=== PATIENT | female | born 1990 | race Caucasian/White ===

== ENCOUNTER 2019-11-15 12:55 | Emergency (ER) | payer MEDICAID ==
[~2019-11-15] VITALS: Ht 167.6 cm; Wt 72.7 kg
[2019-11-15] MEDS ORDERED: normal saline 1000ML IV soln IV ONE (13:15)
[2019-11-15] MEDS ORDERED: LORazepam 2 mg/ml vial IV ONE ×4 (13:20→15:25)
[2019-11-15 13:42] LABS: CLARITY,URINE CLEAR (Clear); COLOR,URINE STRAW (Yellow); GLUCOSE, URINE NEGATIVE (Neg); KETONES,URINE >=80 mg/dl (Neg); LEUKOCYTE ESTERASE ,URINE NEGATIVE (Neg); NITRITES, URINE NEGATIVE (Neg); OCCULT BLOOD,URINE MODERATE (Neg); PROTEIN,URINE 30 mg/dl (Neg); UROBILINOGEN,URINE 0.2 E.U/dL (0.2-1.0)
[2019-11-15 13:43] LABS: UA COLLECTION TYPE CLN CATCH MIDSTREAM; URINE HCG NEGATIVE (NEG)
[2019-11-15 13:47] LABS: BASOPHILS # (AUTO) 0.1 X10'3 (0-0.2); BASOPHILS % (AUTO) 1.4 % (0-1); EOSINOPHILS % (AUTO) 0 % (0-6); HEMATOCRIT 40.8 % (35.0-45.0); HEMOGLOBIN 13.4 g/dl (12.0-16.0); LYMPHOCYTES # (AUTO) 1.1 X10'3 (1.1-4.8); LYMPHOCYTES % (AUTO) 16.8 % (21-51); MEAN CORPUSCULAR HEMOGLOBIN 30.3 PG (27.0-31.0); MEAN CORPUSCULAR HGB CONC 32.8 g/dL (33.0-36.5); MEAN CORPUSCULAR VOLUME 92.6 FL (78-98); MEAN PLATELET VOLUME 8.8 FL (7.4-10.4); MONOCYTES # (AUTO) 0.6 X10'3 (0-0.9); MONOCYTES % (AUTO) 8.9 % (2-12); NEUTROPHILS # (AUTO) 4.6 X10'3 (1.8-7.7); NEUTROPHILS % (AUTO) 72.9 % (42-75); PLATELET COUNT 325 X10'3 (140-440); RED BLOOD COUNT 4.41 X10'6 (4.20-5.60); RED CELL DISTRIBUTION WIDTH 14.5 % (11.5-14.5); WHITE BLOOD COUNT 6.3 X10'3 (4.5-11.0)
[2019-11-15 13:47] LABS: URINE AMPHETAMINE SCREEN NEGATIVE (Neg); URINE BARBITUATE SCREEN NEGATIVE (Neg); URINE BENZODIAZEPINES SCREEN NEGATIVE (Neg); URINE CANNABINOID SCREEN NEGATIVE (Neg); URINE COCAINE SCREEN NEGATIVE (Neg); URINE METHADONE SCREEN NEGATIVE (Neg); URINE OPIATE SCREEN NEGATIVE (Neg); URINE PHENCYCLIDINE SCREEN NEGATIVE (Neg)
[2019-11-15 13:52] LABS: BACTERIA,URINE NONE SEEN /HPF (Neg); MUCUS STRANDS NONE SEEN /LPF (Neg); RBC,URINE NONE SEEN /HPF (0-2); SQUAMOUS EPITHELIAL CELL,UR MODERATE /LPF (FEW); WBC,URINE 0-4 /HPF (0-4)
[2019-11-15 13:54] LABS: ALANINE AMINOTRANSFERASE 77 U/L (12-78); ALBUMIN 4.6 G/DL (3.4-5.0); ALKALINE PHOSPHATASE 91 IU/L (46-116); ANION GAP 24 (8-16); ASPARTATE AMINO TRANSFERASE 153 U/L (10-37); BILIRUBIN,TOTAL 0.6 MG/DL (0.1-1.0); BLOOD UREA NITROGEN 10 MG/DL (7-18); BUN/CREATININE RATIO 13.2 (6.6-38.0); CALCIUM 8.7 MG/DL (8.5-10.1); CHLORIDE 97 MMOL/L (99-107); CREATININE 0.76 MG/DL (0.40-0.90); ETHANOL 0.207 GM/DL (0.0-0.010); GLUCOSE 59 MG/DL (70-104); LIPASE 57 U/L (73-393); POTASSIUM 4.3 MMOL/L (3.5-5.1); SODIUM 133 MMOL/L (135-145); TOTAL PROTEIN 9.2 G/DL (6.4-8.2); eGFR 89 ML/MIN
[2019-11-15 13:58] LABS: TOTAL CARBON DIOXIDE 12.5 MMOL/L (24-32)
--- NOTE | 2019-11-15 14:44 | NUR ---
Patient resting in bed comfortable but still has tremors. Patient has liter NS #2 infusing.
[2019-11-15] MEDS ORDERED: folic acid 1mg/0.2ml inj IV ONE (15:10)
[2019-11-15] MEDS ORDERED: thiamine 100mg/ml 2ml inj. IV ONE (15:10)
[2019-11-15] MEDS ORDERED: GABA300C PO (15:27)
[2019-11-15] MEDS ORDERED: LORA-269 PO (15:27)
[2019-11-15 17:00] VITALS: BP 108/75
== END 2019-11-15 17:01 | disposition home or self-care (01) ==
LOC: ER 12:57
DX: F10.239 Alcohol dependence with withdrawal, unspecified (principal); R11.10 Vomiting, unspecified; R42 Dizziness and giddiness; Z79.899 Other long term (current) drug therapy; Y90.0 Blood alcohol level of less than 20 mg/100 ml
CPT/HCPCS: 36415; 80053; 80305; 80320; 81001; 81025; 83690; 85025; 96361; 96374; 96375; 96376; 99285; J2060; J3411; J3490; J7030

== ENCOUNTER 2020-01-17 01:28 | Inpatient (IN) | payer MEDICAID ==
[2020-01-17] VITALS (16 sets, daily range): BP systolic 100–133; BP diastolic 60–82
[~2020-01-17] VITALS: Ht 167.6 cm; Wt 68.2 kg
[~2020-01-17 01:28] MED LIST: GABA300C PO; LORA-269 PO
--- NOTE | 2020-01-17 01:45 | NUR ---
PT MOVED INSIDE DUE TO SYMPTOMS INCLUDING HR OF 140-160
--- NOTE | 2020-01-17 01:50 | NUR ---
MD MELGAR AWARE OF PT CONDITION INCLUDING HEARTRATE. DISCUSSED NEED FOR FLUIDS. BLOOD DRAWN AND IV STARTED. LA AND BLOOD CULTURES COLLECTED. AWARE OF PT RECENT EXPOSURE TO COVID.
[2020-01-17] MEDS ORDERED: morphine 4 MG/ML inj SYRINge IV ONE (03:00)
[2020-01-17] MEDS ORDERED: ondansetron/PF 4mg/2ml inj IV ONE ×2 (03:00→14:20)
[2020-01-17] MEDS ORDERED: normal saline 1000ML IV soln IVB ONE (03:00)
[2020-01-17] MEDS ORDERED: pantoprazole 40 MG vial IV ONE (03:00)
[2020-01-17 03:16] LABS: BASOPHILS % (AUTO) 0.2 % (0-1); EOSINOPHILS % (AUTO) 0 % (0-6); HEMATOCRIT 46.3 % (35.0-45.0); HEMOGLOBIN 14.6 g/dl (12.0-16.0); LYMPHOCYTES # (AUTO) 0.5 X10'3 (1.1-4.8); LYMPHOCYTES % (AUTO) 3.2 % (21-51); MEAN CORPUSCULAR HEMOGLOBIN 30.7 PG (27.0-31.0); MEAN CORPUSCULAR HGB CONC 31.5 g/dL (33.0-36.5); MEAN CORPUSCULAR VOLUME 97.4 FL (78-98); MEAN PLATELET VOLUME 9.5 FL (7.4-10.4); MONOCYTES # (AUTO) 1.1 X10'3 (0-0.9); MONOCYTES % (AUTO) 7.3 % (2-12); NEUTROPHILS # (AUTO) 13.1 X10'3 (1.8-7.7); NEUTROPHILS % (AUTO) 89.3 % (42-75); PLATELET COUNT 328 X10'3 (140-440); RED BLOOD COUNT 4.75 X10'6 (4.20-5.60); RED CELL DISTRIBUTION WIDTH 16.5 % (11.5-14.5); WHITE BLOOD COUNT 14.7 X10'3 (4.5-11.0)
[2020-01-17 03:23] LABS: ALANINE AMINOTRANSFERASE 90 U/L (12-78); ALBUMIN 5.2 G/DL (3.4-5.0); ALKALINE PHOSPHATASE 101 IU/L (46-116); ASPARTATE AMINO TRANSFERASE 192 U/L (10-37); BILIRUBIN,TOTAL 0.8 MG/DL (0.1-1.0); BLOOD UREA NITROGEN 13 MG/DL (7-18); CALCIUM 8.8 MG/DL (8.5-10.1); CREATININE 2.16 MG/DL (0.40-0.90); GLUCOSE 88 MG/DL (70-104); LIPASE 103 U/L (73-393); POTASSIUM 4.7 MMOL/L (3.5-5.1); TOTAL PROTEIN 10.6 G/DL (6.4-8.2); eGFR 27 ML/MIN
[2020-01-17 03:38] LABS: CHLORIDE 95 MMOL/L (99-107); SODIUM 140 MMOL/L (135-145)
[2020-01-17 03:50] LABS: ANION GAP 39 (8-16); TOTAL CARBON DIOXIDE 6.4 MMOL/L (24-32)
[2020-01-17 03:51] LABS: C-REACTIVE PROTEIN 0.17 MG/DL (0.0-0.5)
[2020-01-17] MEDS ORDERED: normal saline 1000ml 1,000 ML IV ONE (04:40)
[2020-01-17] MEDS ORDERED: metoclopramide 5 mg/ml inj IV ONE (05:05)
[2020-01-17 05:11] LABS: ABG BASE EXCESS -26.2 mmol/L (-2.0-2.0); ABG HCO3 3.5 mmol/L (22.0-26.0); ABG OXYGEN SATURATION 97.5 % (94-97); ABG PCO2 (T) 14.4 mmHg (32.0-45.0); ABG PO2 (T) 122.6 mmHg (75.0-100.0); ALLEN'S TEST POSITIVE; FCOHb 0.3 % (0.0-3.9); FMetHb 0.4 % (0.0-1.5); FO2Hb 96.8 % (94-97); PATIENT TEMPERATURE 36.7; TOTAL HEMOGLOBIN 13.9 G/dl (12.0-16.0)
[2020-01-17 05:40] LABS: D-DIMER 3.52 MG/L FEU (0-0.50)
[2020-01-17 06:06] LABS: ALBUMIN 3.8 G/DL (3.4-5.0); ANION GAP 32 (8-16); BLOOD UREA NITROGEN 14 MG/DL (7-18); BUN/CREATININE RATIO 6.8 (6.6-38.0); CALCIUM 7.9 MG/DL (8.5-10.1); CHLORIDE 104 MMOL/L (99-107); CREATININE 2.06 MG/DL (0.40-0.90); GLUCOSE 78 MG/DL (70-104); POTASSIUM 5.2 MMOL/L (3.5-5.1); SODIUM 142 MMOL/L (135-145); eGFR 28 ML/MIN
[2020-01-17 06:07] LABS: TOTAL CARBON DIOXIDE 6.4 MMOL/L (24-32)
[2020-01-17] MEDS ORDERED: potassium CL 10mEq/100ml bag 100 ML IV PRN ×2 (06:25)
[2020-01-17] MEDS ORDERED: acetaminophen 650mg rectal suppository RC PRN (06:25)
[2020-01-17] MEDS ORDERED: potassium Cl 20 mEq SR tablet PO PRN ×2 (06:25)
[2020-01-17] MEDS: K, MAG and/or Phos replacement - Verify level? MC SCH ×2 (06:25→08:00)
[2020-01-17] MEDS ORDERED: acetaminophen 325mg tablet PO PRN ×2 (06:25)
[2020-01-17] MEDS ORDERED: ipratropium/albuterol 3ml nebule NEB PRN (06:25)
[2020-01-17] MEDS ORDERED: NO HOME MEDS (06:53)
[2020-01-17 07:17] LABS: CLARITY,URINE CLOUDY (Clear); COLOR,URINE YELLOW (Yellow); GLUCOSE, URINE NEGATIVE (Neg); KETONES,URINE >=80 mg/dl (Neg); LEUKOCYTE ESTERASE ,URINE NEGATIVE (Neg); NITRITES, URINE NEGATIVE (Neg); OCCULT BLOOD,URINE LARGE (Neg); PH,URINE 5.5 (4.8-8.0); PROTEIN,URINE 100 mg/dl (Neg); UA COLLECTION TYPE CLN CATCH MIDSTREAM
[2020-01-17 07:22] LABS: BACTERIA,URINE FEW /HPF (Neg); MUCUS STRANDS FEW /LPF (Neg); SQUAMOUS EPITHELIAL CELL,UR FEW /LPF (FEW); TRANSITIONAL EPI CELLS,URINE FEW /HPF; WBC,URINE 0-4 /HPF (0-4)
--- NOTE | 2020-01-17 07:50 | NUR ---
Patient transferred to room 2045 at 0735 by ED RN. Patient was able to transfer self from [facility] to hospital bed. Patient alert and oriented, on room air O2 saturation 98%, Respiratory rate 20, sinus tachycardia, states that she has pain in her chest and back when she takes a breath and no other pain. Personal belongings include purse, pants, shirt, shoes, and cell phone.
[2020-01-17] MEDS: ondansetron/PF 4mg/2ml inj IV PRN ×3 (08:08→18:41)
[2020-01-17] MEDS: normal saline 1000ml 1,000 ML IV SCH ×3 (08:10→19:45)
[2020-01-17 08:14] LABS: ETHANOL 0.072 GM/DL (0.0-0.010)
[2020-01-17 08:21] LABS: URINE AMPHETAMINE SCREEN NEGATIVE (Neg); URINE BARBITUATE SCREEN NEGATIVE (Neg); URINE BENZODIAZEPINES SCREEN NEGATIVE (Neg); URINE CANNABINOID SCREEN NEGATIVE (Neg); URINE COCAINE SCREEN NEGATIVE (Neg); URINE METHADONE SCREEN NEGATIVE (Neg); URINE OPIATE SCREEN POSITIVE (Neg); URINE PHENCYCLIDINE SCREEN NEGATIVE (Neg)
[2020-01-17 09:42] LABS: ALANINE AMINOTRANSFERASE 73 U/L (12-78); ALBUMIN 4.2 G/DL (3.4-5.0); ALKALINE PHOSPHATASE 81 IU/L (46-116); ANION GAP 27 (8-16); ASPARTATE AMINO TRANSFERASE 147 U/L (10-37); BILIRUBIN,TOTAL 1.1 MG/DL (0.1-1.0); BLOOD UREA NITROGEN 12 MG/DL (7-18); BUN/CREATININE RATIO 7.4 (6.6-38.0); CALCIUM 7.5 MG/DL (8.5-10.1); CHLORIDE 98 MMOL/L (99-107); CREATININE 1.63 MG/DL (0.40-0.90); GLUCOSE 99 MG/DL (70-104); MAGNESIUM 1.6 MG/DL (1.5-2.4); PHOSPHORUS 2.8 MG/DL (2.3-4.5); POTASSIUM 5.3 MMOL/L (3.5-5.1); SODIUM 134 MMOL/L (135-145); TOTAL PROTEIN 8.4 G/DL (6.4-8.2); eGFR 37 ML/MIN
[2020-01-17 09:43] LABS: TOTAL CARBON DIOXIDE 8.7 MMOL/L (24-32)
[2020-01-17 11:08] LABS: TOTAL PROTEIN,URINE RANDOM 216.7 MG/DL
[2020-01-17 12:34] LABS: UA EOSINOPHILS NO EOS /HPF
[2020-01-17] MEDS ORDERED: LORazepam 2 mg/ml vial IV PRN (15:45)
--- NOTE | 2020-01-17 18:29 | NUR ---
Report given to VIVIANA Tate
[2020-01-17] MEDS: HYDROcodone/acetaminophen 10/325mg tab PO PRN (18:41)
[2020-01-18] VITALS (13 sets, daily range): BP systolic 98–129; BP diastolic 62–88
[2020-01-18] MEDS: HYDROcodone/acetaminophen 10/325mg tab PO PRN (00:01)
[2020-01-18] MEDS: normal saline 1000ml 1,000 ML IV SCH ×2 (04:00→10:51)
[2020-01-18 05:21] LABS: BASOPHILS % (AUTO) 0.4 % (0-1); EOSINOPHILS % (AUTO) 0.3 % (0-6); HEMATOCRIT 31.5 % (35.0-45.0); HEMOGLOBIN 10.7 g/dl (12.0-16.0); LYMPHOCYTES # (AUTO) 0.7 X10'3 (1.1-4.8); LYMPHOCYTES % (AUTO) 11.9 % (21-51); MEAN CORPUSCULAR HEMOGLOBIN 31.1 PG (27.0-31.0); MEAN CORPUSCULAR VOLUME 91.3 FL (78-98); MEAN PLATELET VOLUME 9.1 FL (7.4-10.4); MONOCYTES # (AUTO) 0.6 X10'3 (0-0.9); MONOCYTES % (AUTO) 9.2 % (2-12); NEUTROPHILS # (AUTO) 4.9 X10'3 (1.8-7.7); NEUTROPHILS % (AUTO) 78.2 % (42-75); PLATELET COUNT 148 X10'3 (140-440); RED BLOOD COUNT 3.45 X10'6 (4.20-5.60); WHITE BLOOD COUNT 6.2 X10'3 (4.5-11.0)
[2020-01-18 05:43] LABS: ALANINE AMINOTRANSFERASE 55 U/L (12-78); ALBUMIN 3.5 G/DL (3.4-5.0); ALBUMIN/GLOBULIN RATIO 1.1 (1.1-1.5); ALKALINE PHOSPHATASE 63 IU/L (46-116); ANION GAP 15 (8-16); ASPARTATE AMINO TRANSFERASE 77 U/L (10-37); BILIRUBIN,TOTAL 1.3 MG/DL (0.1-1.0); BLOOD UREA NITROGEN 10 MG/DL (7-18); BUN/CREATININE RATIO 12.8 (6.6-38.0); CALCIUM 7.5 MG/DL (8.5-10.1); CHLORIDE 103 MMOL/L (99-107); CREATININE 0.78 MG/DL (0.40-0.90); GLUCOSE 75 MG/DL (70-104); POTASSIUM 3.7 MMOL/L (3.5-5.1); SODIUM 138 MMOL/L (135-145); TOTAL PROTEIN 6.8 G/DL (6.4-8.2); eGFR 86 ML/MIN
[2020-01-18 05:52] LABS: PHOSPHORUS 0.5 MG/DL (2.3-4.5)
[2020-01-18] MEDS ORDERED: Neutra Phos packet PO PRN (06:00)
--- NOTE | 2020-01-18 06:30 | NUR ---
Patient in room ICU 2044. I have received report from [facility] and had the opportunity to ask questions and assume patient care.
[2020-01-18] MEDS: K, MAG and/or Phos replacement - Verify level? MC SCH (07:18)
[2020-01-18] MEDS ORDERED: ESOMEPRAZOLE 40 MG VIAL IV SCH (08:00)
[2020-01-18] MEDS ORDERED: pantoprazole 40 MG vial IV SCH (08:00)
[2020-01-18] MEDS: ondansetron/PF 4mg/2ml inj IV PRN (08:28)
[2020-01-18] MEDS ORDERED: FLU VACC QS2020-21(6MOS UP)/PF 60 MCG/0.5 ML SYRINGE IMVAC ONE (10:00)
--- NOTE | 2020-01-18 13:18 | NUR ---
Patient IV's d/c'd from both left and right arms; cannulas intact on both iv's. Patient states that she understands all her discharge instructions and that if her shortness of breath returns, she will return to the ED. Patient stated that she would make a follow up appointment with Dr. Fajardo in two months and will follow up him. Patient has all of her belongings and will be leaving via w/c after receiving her flu vaccination. She will be taken down to the front lobby and released to a private vehicle
== END 2020-01-18 13:31 | disposition home or self-care (01) | DRG 469 ==
LOC: ER 01:28 → ED HOLD 06:25 → ICU 2S 07:32
PROVIDERS: ADMIT Internal Medicine Critical Care Medicine; ATTEND Internal Medicine Critical Care Medicine
DX: N17.9 Acute kidney failure, unspecified (principal); Z20.828 Contact with and (suspected) exposure to other viral communicable diseases; E87.2 Acidosis; F12.90 Cannabis use, unspecified, uncomplicated; F10.20 Alcohol dependence, uncomplicated; R80.9 Proteinuria, unspecified
CPT/HCPCS: 36415; 36600; 71045; 80048; 80053; 80305; 80320; 81001; 82570; 82803; 82948; 83605; 83690; 83735; 84100; 84145; 84156; 84300; 85018; 85025; 85379; 86140; 87040; 87081; 87207; 87635; 93005; 94760; 96374; 96375; 99291; C9113; C9803; G0378; J2060; J2270; J2405; J2765; J7030; Q2039

== ENCOUNTER 2020-04-06 19:30 | Emergency (ER) | payer MEDICAID ==
[~2020-04-06] VITALS: Ht 170.2 cm; Wt 62.7 kg
[~2020-04-06 19:30] MED LIST changes: -GABA300C PO; -LORA-269 PO; +NO HOME MEDS
[2020-04-06 20:25] LABS: BASOPHILS # (AUTO) 0.1 X10'3 (0-0.2); BASOPHILS % (AUTO) 0.6 % (0-1); EOSINOPHILS # (AUTO) 0.1 X10'3 (0-0.9); EOSINOPHILS % (AUTO) 0.6 % (0-6); HEMATOCRIT 38.2 % (35.0-45.0); HEMOGLOBIN 12.8 g/dl (12.0-16.0); LYMPHOCYTES # (AUTO) 1.5 X10'3 (1.1-4.8); MEAN CORPUSCULAR HEMOGLOBIN 31.1 PG (27.0-31.0); MEAN CORPUSCULAR HGB CONC 33.5 g/dL (33.0-36.5); MEAN CORPUSCULAR VOLUME 92.9 FL (78-98); MEAN PLATELET VOLUME 9.7 FL (7.4-10.4); MONOCYTES # (AUTO) 0.9 X10'3 (0-0.9); MONOCYTES % (AUTO) 8.6 % (2-12); NEUTROPHILS # (AUTO) 7.5 X10'3 (1.8-7.7); NEUTROPHILS % (AUTO) 75.2 % (42-75); PLATELET COUNT 165 X10'3 (140-440); RED BLOOD COUNT 4.11 X10'6 (4.20-5.60); RED CELL DISTRIBUTION WIDTH 15.7 % (11.5-14.5)
[2020-04-06 20:34] LABS: ALANINE AMINOTRANSFERASE 83 U/L (12-78); ALBUMIN 4.1 G/DL (3.4-5.0); ALKALINE PHOSPHATASE 85 IU/L (46-116); ANION GAP 13 (8-16); ASPARTATE AMINO TRANSFERASE 145 U/L (10-37); BILIRUBIN,TOTAL 0.8 MG/DL (0.1-1.0); BLOOD UREA NITROGEN 12 MG/DL (7-18); BUN/CREATININE RATIO 17.4 (6.6-38.0); CALCIUM 9.6 MG/DL (8.5-10.1); CHLORIDE 101 MMOL/L (99-107); CREATININE 0.69 MG/DL (0.40-0.90); GLUCOSE 90 MG/DL (70-104); POTASSIUM 3.6 MMOL/L (3.5-5.1); SODIUM 139 MMOL/L (135-145); TOTAL CARBON DIOXIDE 25.1 MMOL/L (24-32); TOTAL PROTEIN 8.1 G/DL (6.4-8.2); eGFR > 90 ML/MIN
[2020-04-06] MEDS ORDERED: normal saline 1000ml 1,000 ML IV ONE (21:00)
[2020-04-06] MEDS ORDERED: pantoprazole 40 MG vial IV ONE (21:00)
[2020-04-06] MEDS ORDERED: pantoprazole 40 MG vial IV STA (21:11)
[2020-04-06] MEDS ORDERED: chlordiazePOXIDE 25mg capsule PO ONE (21:15)
[2020-04-06 21:58] VITALS: BP 112/83
[2020-04-06 22:00] LABS: LIPASE 85 U/L (73-393)
[2020-04-06 22:01] LABS: PARTIAL THROMBOPLASTIN TIME 28 SECONDS (22-32)
[2020-04-06] MEDS ORDERED: PANT20TA18 PO (22:26)
== END 2020-04-06 23:31 | disposition home or self-care (01) ==
LOC: ER 19:31
DX: K92.2 Gastrointestinal hemorrhage, unspecified (principal); R42 Dizziness and giddiness; F12.90 Cannabis use, unspecified, uncomplicated; Z72.89 Other problems related to lifestyle; Z79.899 Other long term (current) drug therapy; Z98.891 History of uterine scar from previous surgery
CPT/HCPCS: 36415; 80053; 83690; 85025; 85610; 85730; 96361; 96374; 99283; C9113; J7030

== ENCOUNTER 2020-08-12 03:12 | Emergency (ER) | payer MEDICAID ==
[~2020-08-12] VITALS: Ht 167.6 cm; Wt 61.4 kg
[~2020-08-12 03:12] MED LIST changes: +PANT20TA18 PO
[2020-08-12] MEDS ORDERED: normal saline 1000ML IV soln IVB ONE (03:50)
[2020-08-12] MEDS ORDERED: ondansetron/PF 4mg/2ml inj IV ONE (03:50)
[2020-08-12] MEDS ORDERED: folic acid 1mg/0.2ml inj IV ONE (03:50)
[2020-08-12] MEDS ORDERED: pantoprazole 40 MG vial IV ONE (03:50)
[2020-08-12] MEDS ORDERED: thiamine inj. 100 MG in normal saline 100ml IV soln 100 ML IV ONE (03:50)
[2020-08-12 04:04] LABS: CLARITY,URINE SLIGHTLY CLOUDY (Clear); COLOR,URINE YELLOW (Yellow); GLUCOSE, URINE NEGATIVE (Neg); KETONES,URINE TRACE mg/dl (Neg); LEUKOCYTE ESTERASE ,URINE NEGATIVE (Neg); NITRITES, URINE POSITIVE (Neg); OCCULT BLOOD,URINE TRACE-INTACT (Neg); PH,URINE 5.5 (4.8-8.0); PROTEIN,URINE 30 mg/dl (Neg)
[2020-08-12 04:08] LABS: BASOPHILS # (AUTO) 0.1 X10'3 (0-0.2); BASOPHILS % (AUTO) 3.5 % (0-1); EOSINOPHILS % (AUTO) 0.5 % (0-6); HEMATOCRIT 40.4 % (35.0-45.0); HEMOGLOBIN 13.6 g/dl (12.0-16.0); LYMPHOCYTES # (AUTO) 1.8 X10'3 (1.1-4.8); LYMPHOCYTES % (AUTO) 51.9 % (21-51); MEAN CORPUSCULAR HEMOGLOBIN 32.1 PG (27.0-31.0); MEAN CORPUSCULAR HGB CONC 33.6 g/dL (33.0-36.5); MEAN CORPUSCULAR VOLUME 95.7 FL (78-98); MEAN PLATELET VOLUME 9.5 FL (7.4-10.4); MONOCYTES # (AUTO) 0.4 X10'3 (0-0.9); MONOCYTES % (AUTO) 12.4 % (2-12); NEUTROPHILS # (AUTO) 1.1 X10'3 (1.8-7.7); NEUTROPHILS % (AUTO) 31.7 % (42-75); PLATELET COUNT 188 X10'3 (140-440); RED BLOOD COUNT 4.22 X10'6 (4.20-5.60); RED CELL DISTRIBUTION WIDTH 16.9 % (11.5-14.5); WHITE BLOOD COUNT 3.5 X10'3 (4.5-11.0)
[2020-08-12 04:18] LABS: URINE HCG NEGATIVE (NEG)
[2020-08-12 04:22] LABS: ALANINE AMINOTRANSFERASE 130 U/L (12-78); ALBUMIN 4.3 G/DL (3.4-5.0); ALKALINE PHOSPHATASE 116 IU/L (46-116); ANION GAP 15 (8-16); ASPARTATE AMINO TRANSFERASE 519 U/L (10-37); BILIRUBIN,TOTAL 1.1 MG/DL (0.1-1.0); BLOOD UREA NITROGEN 9 MG/DL (7-18); BUN/CREATININE RATIO 11.1 (6.6-38.0); CALCIUM 8.4 MG/DL (8.5-10.1); CHLORIDE 101 MMOL/L (99-107); CREATININE 0.81 MG/DL (0.40-0.90); GLUCOSE 85 MG/DL (70-104); POTASSIUM 3.7 MMOL/L (3.5-5.1); SODIUM 142 MMOL/L (135-145); TOTAL CARBON DIOXIDE 25.8 MMOL/L (24-32); TOTAL PROTEIN 8.6 G/DL (6.4-8.2); eGFR 82 ML/MIN
[2020-08-12 04:24] LABS: LIPASE 79 U/L (73-393); MAGNESIUM 1.5 MG/DL (1.5-2.4); PHOSPHORUS 3.6 MG/DL (2.3-4.5)
[2020-08-12 04:25] LABS: ETHANOL 0.453 GM/DL (0.0-0.010)
[2020-08-12 04:27] LABS: UA COLLECTION TYPE NON-SPECIFIED
[2020-08-12 04:29] LABS: BACTERIA,URINE 4+ /HPF (Neg); MUCUS STRANDS MODERATE /LPF (Neg); RBC,URINE NONE SEEN /HPF (0-2); SQUAMOUS EPITHELIAL CELL,UR MODERATE /LPF (FEW)
[2020-08-12] MEDS ORDERED: CEPH-585 PO (04:48)
[2020-08-12] MEDS ORDERED: cephalexin 500mg capsule PO ONE (04:50)
[2020-08-12 05:17] LABS: ANISOCYTOSIS 1+; LARGE PLATELETS FEW; PLATELET ESTIMATE NORMAL; TOTAL CELLS COUNTED 100
[2020-08-12 05:39] VITALS: BP 114/78
== END 2020-08-12 05:47 | disposition home or self-care (01) ==
LOC: ER 03:12
DX: F10.129 Alcohol abuse with intoxication, unspecified (principal); N39.0 Urinary tract infection, site not specified; R11.2 Nausea with vomiting, unspecified; R10.13 Epigastric pain; F12.90 Cannabis use, unspecified, uncomplicated; Z98.890 Other specified postprocedural states; Z72.89 Other problems related to lifestyle; Z79.2 Long term (current) use of antibiotics; Z79.899 Other long term (current) drug therapy; Y90.0 Blood alcohol level of less than 20 mg/100 ml
CPT/HCPCS: 36415; 71045; 80053; 80320; 81001; 81025; 83690; 83735; 84100; 85007; 85025; 87077; 87088; 87186; 96365; 96375; 99284; C9113; J2405; J3411; J3490; J7030

== ENCOUNTER 2022-03-08 00:23 | Emergency (ER) | payer MEDICAID ==
[~2022-03-08] VITALS: Ht 170.2 cm; Wt 70.5 kg
[~2022-03-08 00:23] MED LIST changes: +BUSP10TA10 PO; +ESCI5TAB PO; +HYDR-3686 PO; +NALT50TA PO; +NICO-907 BC; -PANT20TA18 PO; +PROP10TA10 PO; +QUET100T34 PO; +TRAZ-251 PO
[2022-03-08] MEDS ORDERED: LORazepam 2 mg/ml vial IM ONE (01:20)
[2022-03-08] MEDS ORDERED: bacitracin 15gm ointment TP ONE (01:20)
[2022-03-08] MEDS ORDERED: LIDOcaine 1% W/epiNEPHrine 1:200,000 10ml vial IJ ONE (01:20)
[2022-03-08] MEDS ORDERED: TETanus/Pertussis (Acell)/Diphther VAC/PF (Tdap-Adult) 0.5ml syringe IMVAC ONE (01:20)
[2022-03-08] MEDS ORDERED: LIDOcaine/epinephrine/tetracaine TOPICAL sol 3 ML syringe TOP ONE (01:20)
[2022-03-08] MEDS ORDERED: ceFAZolin 1gm IM kit IM ONE (01:20)
[2022-03-08] MEDS ORDERED: hydrOXYzine 25 MG tablet PO ONE (01:20)
[2022-03-08 01:23] LABS: BASOPHILS # (AUTO) 0.1 X10'3 (0-0.2); BASOPHILS % (AUTO) 1.3 % (0-1); EOSINOPHILS # (AUTO) 0.2 X10'3 (0-0.9); HEMATOCRIT 36.9 % (35.0-45.0); HEMOGLOBIN 12.4 g/dl (12.0-16.0); LYMPHOCYTES # (AUTO) 2.8 X10'3 (1.1-4.8); LYMPHOCYTES % (AUTO) 42.8 % (21-51); MEAN CORPUSCULAR HEMOGLOBIN 29.4 PG (27.0-31.0); MEAN CORPUSCULAR HGB CONC 33.5 g/dL (33.0-36.5); MEAN CORPUSCULAR VOLUME 87.7 FL (78-98); MEAN PLATELET VOLUME 8.6 FL (7.4-10.4); MONOCYTES # (AUTO) 0.4 X10'3 (0-0.9); MONOCYTES % (AUTO) 6.8 % (2-12); NEUTROPHILS % (AUTO) 46.1 % (42-75); PLATELET COUNT 288 X10'3 (140-440); RED BLOOD COUNT 4.21 X10'6 (4.20-5.60); RED CELL DISTRIBUTION WIDTH 17.9 % (11.5-14.5); WHITE BLOOD COUNT 6.6 X10'3 (4.5-11.0)
[2022-03-08] MEDS ORDERED: ceFAZolin/D5W- 1GM premix 50 ML IV STA (01:29)
[2022-03-08] MEDS ORDERED: LORazepam 2 mg/ml vial IV ONE ×2 (01:30→04:00)
[2022-03-08 01:42] LABS: ALANINE AMINOTRANSFERASE 17 U/L (12-78); ALKALINE PHOSPHATASE 60 IU/L (46-116); ANION GAP 11 (8-16); ASPARTATE AMINO TRANSFERASE 18 U/L (10-37); BILIRUBIN,TOTAL 0.2 MG/DL (0.1-1.0); BLOOD UREA NITROGEN 7 MG/DL (7-18); BUN/CREATININE RATIO 8.3 (6.6-38.0); CALCIUM 8.4 MG/DL (8.5-10.1); CHLORIDE 106 MMOL/L (99-107); CREATININE 0.84 MG/DL (0.40-0.90); ETHANOL 0.148 GM/DL (0.0-0.010); GLUCOSE 131 MG/DL (70-104); POTASSIUM 3.1 MMOL/L (3.5-5.1); SODIUM 143 MMOL/L (135-145); TOTAL CARBON DIOXIDE 26.1 MMOL/L (24-32); eGFR 78 ML/MIN
[2022-03-08] MEDS ORDERED: LIDOCAINE 2%/EPI 1:100,000 inj. Multi-dose 20 ML VIAL IJ ONE (02:35)
[2022-03-08] MEDS ORDERED: BUSP10TA11 PO (03:00)
[2022-03-08] MEDS ORDERED: ESCI5TAB PO (03:15)
[2022-03-08] MEDS ORDERED: BUSP5TAB3 PO (03:19)
[2022-03-08] MEDS ORDERED: HYDR-3686 PO (03:19)
[2022-03-08] MEDS ORDERED: QUET200T31 PO (03:19)
[2022-03-08] MEDS ORDERED: NALT50TA PO (03:19)
[2022-03-08] MEDS ORDERED: PROP10TA10 PO (03:19)
[2022-03-08] MEDS ORDERED: POTASSIUM BICARB 20meq eff tab 20 MEQ TABLET.EFF PO SCH (05:10)
[2022-03-08] MEDS ORDERED: hydrOXYzine 25 MG tablet PO PRN (06:50)
--- NOTE | 2022-03-08 07:52 | NUR ---
PATIETN RESTING QUIETLY. WATER GIVEN. AWAITING MENTAL HEALTH EVAL.
--- NOTE | 2022-03-08 08:56 | NUR ---
PACKET SENT TO [facility].
[2022-03-08] MEDS: busPIRone 5mg tablet PO SCH ×3 (09:29→20:03)
[2022-03-08] MEDS: propranolol 10mg tablet PO SCH ×3 (09:30→20:03)
[2022-03-08] MEDS: naltrexone 50mg tablet PO SCH (09:30)
[2022-03-08] MEDS: ESCITALOPRAM OXALATE 5 MG TABLET PO SCH (09:30)
[2022-03-08 11:33] LABS: URINE HCG NEGATIVE (NEG)
[2022-03-08] MEDS ORDERED: acetaminophen 325mg tablet PO ONE (11:50)
[2022-03-08 11:54] LABS: URINE AMPHETAMINE SCREEN NEGATIVE (Neg); URINE BARBITUATE SCREEN NEGATIVE (Neg); URINE BENZODIAZEPINES SCREEN NEGATIVE (Neg); URINE CANNABINOID SCREEN NEGATIVE (Neg); URINE COCAINE SCREEN NEGATIVE (Neg); URINE METHADONE SCREEN NEGATIVE (Neg); URINE OPIATE SCREEN NEGATIVE (Neg); URINE PHENCYCLIDINE SCREEN NEGATIVE (Neg)
[2022-03-08] MEDS ORDERED: ibuprofen tablet 400 MG TABLET PO ONE (15:20)
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
--- NOTE | 2022-03-08 17:07 | NUR ---
Pt resting on her left side, noted rise and fall of chest.
[2022-03-08 17:30] VITALS: BP 104/72
--- NOTE | 2022-03-08 18:24 | NUR ---
Pt. resting on her right side, noted rise and fall of chest. No distress noted.
--- NOTE | 2022-03-08 18:34 | NUR ---
The patient awakened for the evening meal and is currently sitting up and eating.
--- NOTE | 2022-03-08 18:56 | NUR ---
One to one with the patient to assess severity of depressive symptoms and self harm risk. The patient ate 100% of her dinner. She is content to be in the ER and is not asking to leave. She is currently homeless and when asked what her plan for housing was once she was discharged and she replied that she would probably have to go to the local [place] or perhaps or inpatient substance abuse treatment. She denies craving ETOH at this time. She denies symptoms of withdrawal and none were evident on assessment. Psychotic symptoms were denied and were not evident during the assessment. She continues to endorse suicidal thoughts and states she can be safe here in the ER but not if discharged. Left wrist and hand assessed. Cap refill time WNL. Dressing is CDI.
--- NOTE | 2022-03-08 19:16 | NUR ---
Nurse to Nurse with [facility], Zhanna.
--- NOTE | 2022-03-08 19:40 | NUR ---
The patient has been accepted at [facility] for transfer on 03/09/21
[2022-03-08 19:52] LABS: CLARITY,URINE SLIGHTLY CLOUDY (Clear); COLOR,URINE YELLOW (Yellow); GLUCOSE, URINE NEGATIVE (Neg); KETONES,URINE NEGATIVE (Neg); LEUKOCYTE ESTERASE ,URINE NEGATIVE (Neg); NITRITES, URINE NEGATIVE (Neg); OCCULT BLOOD,URINE NEGATIVE (Neg); PROTEIN,URINE NEGATIVE (Neg); UROBILINOGEN,URINE 0.2 E.U/dL (0.2-1.0)
[2022-03-08 19:59] LABS: MUCUS STRANDS FEW /LPF (Neg); SQUAMOUS EPITHELIAL CELL,UR MANY /LPF (FEW); UA COLLECTION TYPE CLN CATCH MIDSTREAM
[2022-03-08 20:00] LABS: BACTERIA,URINE FEW /HPF (Neg); RBC,URINE 0-2 /HPF (0-2); TRANSITIONAL EPI CELLS,URINE FEW /HPF; WBC,URINE 0-4 /HPF (0-4)
--- NOTE | 2022-03-08 20:38 | NUR ---
The patient appears to be sleeping
[2022-03-08] MEDS ORDERED: quetiapine 100mg tablet PO SCH (21:00)
--- NOTE | 2022-03-08 21:35 | NUR ---
The patient appears to be sleeping
--- NOTE | 2022-03-08 22:38 | NUR ---
The patient appears to be sleeping
--- NOTE | 2022-03-08 23:38 | NUR ---
The patient appears to be sleeping
--- NOTE | 2022-03-09 01:09 | NUR ---
The patient appears to be sleeping
--- NOTE | 2022-03-09 02:42 | NUR ---
The patient periodically awake and asked if it was in the afternoon and she was made aware that it was early childhood assistant.
--- NOTE | 2022-03-09 04:05 | NUR ---
The patient appears to be sleeping
--- NOTE | 2022-03-09 05:12 | NUR ---
The patient appears to be sleeping
--- NOTE | 2022-03-09 05:48 | NUR ---
Dressing change to left wrist. 4X4s and tape. Sutures intact. No s/s of infection
--- NOTE | 2022-03-09 08:05 | NUR ---
Pt ate her meal and took her medications as prescribed. She then laid down and appears to be sleeping. Affect remains depressed. Speech is low and monotone. Little eye contact. Cooperative.
[2022-03-09] MEDS: busPIRone 5mg tablet PO SCH ×2 (08:41→08:50)
[2022-03-09] MEDS: propranolol 10mg tablet PO SCH (08:41)
[2022-03-09] MEDS: naltrexone 50mg tablet PO SCH (08:42)
[2022-03-09] MEDS: ESCITALOPRAM OXALATE 5 MG TABLET PO SCH (08:45)
--- NOTE | 2022-03-09 10:10 | NUR ---
Pt appears to be sleeping. RR even and unlabored.
--- NOTE | 2022-03-09 12:08 | NUR ---
Pt is awake. She requested and was given the phone.
== END 2022-03-09 14:14 ==
LOC: ER 00:24
DX: S61.512A Laceration without foreign body of left wrist, initial encounter (principal); Z20.822 Contact with and (suspected) exposure to COVID-19; E87.6 Hypokalemia; F32.A Depression, unspecified; Z79.899 Other long term (current) drug therapy; X78.8XXA Intentional self-harm by other sharp object, initial encounter; Y93.89 Activity, other specified; Y92.89 Other specified places as the place of occurrence of the external cause; Y99.8 Other external cause status
CPT/HCPCS: 12002; 36415; 73110; 80053; 80305; 80320; 81001; 81025; 85025; 86885; 86900; 86901; 87811; 90471; 90715; 96365; 96375; 96376; 99285; J0690; J2060; J3490; Q0177; A6258; A6449